=== PATIENT | female | born 1960 | race Caucasian/White ===

== ENCOUNTER → 2019-10-30 08:55 | Outpatient (BNVA) | payer BC, SELFPAY | PROVIDERS: Referring Provider Family Medicine; Visit Provider Specialist | DX: R23.2 Flushing (principal); R42 Dizziness and giddiness; F17.210 Nicotine dependence, cigarettes, uncomplicated; F32.9 Major depressive disorder, single episode, unspecified | CPT/HCPCS: 99204 ==

== ENCOUNTER 2019-11-12 14:44 | Outpatient (CLI) | payer BC, SELFPAY ==
--- NOTE | 2019-11-12 15:15 | MR_ITS ---
WS: [id number] MRI BRAIN WITHOUT CONTRAST HISTORY: R42 Dizziness and giddiness COMPARISON: None available. TECHNIQUE: Diffusion imaging, multiplanar T1, T2 and FLAIR imaging obtained. No evidence for acute infarct or hemorrhage. Slater-white matter differentiation is normal. No significant atrophy. There are a few scattered T2 and FLAIR signal hyperintensities in the subcort ical white matter. No prior infarct. No edema or midline shift. Ventricles and extra-axial spaces are normal. No inferior displacement of cerebellar tonsils. The sella turcica and pituitary gland are unremarkabl e. Posterior fossa is also unremarkable. Dural venous sinuses and [place] demonstrate no abnormality on this unenhanced studies. Paranasal sinuses: Clear. Mastoid air cells: Normal. Calvarium and scalp: Intact. MR/MR head wo con* [id number] IMPRESSION: 1. No acute infarct. 2. Mild chronic microvascular ischemic disease.
== END 2019-11-12 14:45 | disposition home or self-care (01) ==
LOC: RADSHAW 14:51
PROVIDERS: PCP Family Medicine; Visit Provider Specialist
DX: R42 Dizziness and giddiness (principal); I25.9 Chronic ischemic heart disease, unspecified
CPT/HCPCS: 70551

== ENCOUNTER 2019-12-04 15:06 | Outpatient (CLI) | payer BC, SELFPAY ==
[2019-12-09 21:05] LABS: 24 Hour Urine Volume 2500 mL; 5-HIAA, 24 Hour Urine 2.5 mg/24 h (<=6.0)
== END 2019-12-04 15:07 | disposition home or self-care (01) ==
LOC: LAB 15:09
PROVIDERS: PCP Family Medicine; Visit Provider Specialist
DX: R23.2 Flushing (principal)
CPT/HCPCS: 83497

== ENCOUNTER → 2020-01-14 14:09 | Outpatient (BNVA) | payer BC, SELFPAY | PROVIDERS: PCP Family Medicine; Visit Provider Specialist | DX: G43.909 Migraine, unspecified, not intractable, without status migrainosus (principal); F41.0 Panic disorder [episodic paroxysmal anxiety]; R42 Dizziness and giddiness; R01.1 Cardiac murmur, unspecified | CPT/HCPCS: 99214 ==

== ENCOUNTER 2020-01-29 11:10 | Outpatient (CLI) | payer BC, SELFPAY ==
--- NOTE | 2020-01-29 11:00 | USCV_ITS ---
Loretta Steiner Age: 59 Gender: F : 1960 Exam Date: 01/29/2020 11:26 Ordering Phys: Rere Landeros MD Technologist: Yuliana Pratt Exam Location: [facility] [place] Indication: Heart murmur BP: 110 / 70 HR: 75 Rhythm: Sinus Technical Quality: Fair MEASUREMENTS (Male / Female) Normal Values 2D ECHO LV Diastolic Diameter PLAX 3.5 cm 4.2 - 5.9 / 3.9 - 5.3 cm LV Systolic Diameter PLAX 2.2 cm LV Chamber Size 3.8 cm IVS Diastolic Thickness 1.3 cm 0.6 - 1.0 / 0.6 - 0.9 cm IVS Systolic Thickness 1.4 cm LVPW Diastolic Thickness 1.1 cm 0.6 - 1.0 / 0.6 - 0.9 cm LVPW Systolic Thickness 0.9 cm RV Chamber Size 1.8 cm LVOT Diameter 1.8 cm LV Ejection Fraction 2D Teich 70.1 % LV Ejection Fraction MOD 2C 63.8 % LV Ejection Fraction 2C AL 62.6 % LA Diameter 2.1 cm LA Width 2.0 cm LA Height 4.7 cm RA Width 1.7 cm RA Height 4.0 cm Aorta at Sinotubular Diameter 1.9 cm M-MODE LV Diastolic Diameter MM 5.1 cm 4.2 - 5.9 / 3.9 - 5.3 cm LV Systolic Diameter MM 3.4 cm LV Ejection Fraction MM Teich 61.4 % IVS Diastolic Thickness MM 1.0 cm 0.6 - 1.0 / 0.6 - 0.9 cm IVS Systolic Thickness MM 1.6 cm LVPW Diastolic Thickness MM 1.1 cm 0.6 - 1.0 / 0.6 - 0.9 cm LVPW Systolic Thickness MM 1.6 cm RV Diastolic Diameter MM 1.1 cm Aortic Annulus Diameter 2.8 cm LA Ao Ratio MM 1.3 MV E Point Septal Separation 0.2 cm DOPPLER AV Peak Velocity 156.0 cm/s LVOT Peak Velocity 106.0 cm/s AV Area Cont Eq vti 1.9 cm squared AV Area Cont Eq pk 1.8 cm squared MV Area PHT 4.1 cm squared Mitral E to A Ratio 1.0 MV E' Velocity 14.0 cm/s Mitral E to MV E' Ratio 6.0 Mitral E to LV E' Lateral Ratio 5.4 Mitral E to LV E' Septal Ratio 6.9 TR Peak Velocity 221.0 cm/s TR Peak Gradient 19.6 mmHg TV Peak E Velocity 69.0 cm/s Right Atrial Pressure 3.0 mmHg Pulmonary Artery Systolic Pressu 22.5 mmHg FINDINGS Left Ventricle Normal left ventricular size, systolic function and wall thickness, with no regional wall motion abnormalities. Left ventricular ejection fraction is estimated at 65 %. Normal diastolic function. Right Ventricle Normal right ventricular size and systolic function. Right ventricular systolic pressure 22.5 mmHg. Right Atrium Normal right atrial size. Left Atrium Normal left atrial size. Mitral Valve Structurally normal mitral valve. No mitral valve stenosis. No significant mitral valve regurgitation. Aortic Valve Aortic valve not well visualized. Probably trileaflet aortic valve. No aortic valve stenosis. No aortic valve regurgitation. Tricuspid Valve Structurally normal tricuspid valve. Trace tricuspid valve regurgitation. Pulmonic Valve Trace pulmonary valve regurgitation. Pericardium No pericardial effusion. Aorta Normal size aortic root. CONCLUSIONS 1. Normal left ventricular size, systolic function and wall thickness, with no regional wall motion abnormalities. Left ventricular ejection fraction is estimated at 65 %. Normal diastolic function. 2. Normal pulmonary artery pressure. 3. No significant valvular abnormlaity. 4. No pericardial effusion. 5. No prior similar studies to compare. Poly Lockhart MD (Electronically Signed) Final Date: 31 January 2020 16:27 S
== END 2020-01-29 11:11 | disposition home or self-care (01) ==
LOC: US 11:13
PROVIDERS: PCP Family Medicine; Visit Provider Specialist
DX: R01.1 Cardiac murmur, unspecified (principal)
CPT/HCPCS: 93306

== ENCOUNTER → 2021-01-19 13:58 | Outpatient (BNVA) | payer BC, SELFPAY | PROVIDERS: PCP Family Medicine; Visit Provider Specialist | DX: G43.909 Migraine, unspecified, not intractable, without status migrainosus (principal); F41.0 Panic disorder [episodic paroxysmal anxiety]; R20.0 Anesthesia of skin; R20.2 Paresthesia of skin; R42 Dizziness and giddiness; R23.2 Flushing; F17.210 Nicotine dependence, cigarettes, uncomplicated | CPT/HCPCS: 99215 ==

== ENCOUNTER 2021-01-19 16:40 | Outpatient (CLI) | payer BC, SELFPAY ==
[2021-01-19 18:29] LABS: Creatine Phosphokinase 85 U/L (26-192)
[2021-01-19 18:47] LABS: Erythrocyte Sedimentation Rate 16 mm/hr (0-15)
[2021-01-19 19:05] LABS: Vitamin B12 > 2000 pg/mL (232-1245)
[2021-01-21 15:13] LABS: COMPLEMENT COMPONENT C3C 129 mg/dL (83-193); COMPLEMENT COMPONENT C4C 32 mg/dL (15-57)
[2021-01-22 15:06] LABS: COMPLEMENT, TOTAL (CH50) >60 U/mL (31-60)
[2021-01-25 12:33] LABS: CENTROMERE B ANTIBODY <1.0 NEG AI (<1.0 NEG); JO-1 ANTIBODY <1.0 NEG AI (<1.0 NEG); RNP ANTIBODY <1.0 NEG AI (<1.0 NEG); SCL-70 ANTIBODY <1.0 NEG AI (<1.0 NEG); SJOGREN'S ANTIBODY (SS-A) <1.0 NEG AI (<1.0 NEG); SM ANTIBODY <1.0 NEG AI (<1.0 NEG); SS-B <1.0 NEG AI (<1.0 NEG)
[2021-01-25 14:12] LABS: ANA SCREEN, IFA NEGATIVE (NEGATIVE)
[2021-01-25 15:17] LABS: THYROID PEROXIDASE ANTIBODIES 1 IU/mL (<9)
[2021-01-29 15:57] LABS: DNA AB (DS) CRITHIDIA,IFA NEGATIVE (NEGATIVE)
== END 2021-01-19 16:41 | disposition home or self-care (01) ==
PROVIDERS: PCP Family Medicine; Visit Provider Specialist
DX: R20.0 Anesthesia of skin (principal); R20.2 Paresthesia of skin
CPT/HCPCS: 36415; 82550; 82607; 85651; 86160; 86162; 86235; 86255; 86376

== ENCOUNTER → 2024-01-31 11:49 | Outpatient (BNVA) | payer BC, SELFPAY | PROVIDERS: PCP Nurse Practitioner; Visit Provider Internal Medicine Rheumatology | DX: Z79.899 Other long term (current) drug therapy (principal); M19.90 Unspecified osteoarthritis, unspecified site | CPT/HCPCS: 36415; 73030; 73130; 73630; 80076; 82306; 82565; 83520; 85025; 85651; 86140; 86200 ==